=== PATIENT | female | born 1995 | race Caucasian/White ===

== ENCOUNTER 2016-08-30 01:01 | Emergency (ER) | payer MEDICAID ==
[~2016-08-30] VITALS: Ht 157.5 cm; Wt 80.0 kg
[~2016-08-30 01:01] MED LIST: ALPR-475 PO; DEXA0.5T PO; DEXA1TAB5 PO; FAMO-79 PO; FAMO20TA7 PO; LEVE100020 PO; LEVE500T53 PO; LORA-446 PO; MELA1TAB8 PO; OXYC5TAB2 PO; OXYC5TAB3 PO; PANT40TA3 PO; PHEN100C PO; SUMA25TA3 PO
[2016-08-30 01:59] VITALS: BP 135/74
== END 2016-08-30 02:43 | disposition home or self-care (01) ==
LOC: ED 02:08
DX: M25.461 Effusion, right knee (principal); M25.462 Effusion, left knee
CPT/HCPCS: 99284

== ENCOUNTER → 2016-09-19 | Outpatient (CLI) | payer MEDICAID | END | disposition home or self-care (01) | LOC: ROC 15:27 | PROVIDERS: ATTEND Radiology Radiation Oncology | DX: C71.1 Malignant neoplasm of frontal lobe (principal) | CPT/HCPCS: 99212; G0463 ==

== ENCOUNTER → 2016-10-14 | Outpatient (CLI) | payer MEDICAID ==
[~2016-10-14] MED LIST changes: +GADOBUTROL 10 MMOL/10 ML PFS ONE
== END | disposition home or self-care (01) ==
LOC: CFH 10:16
PROVIDERS: ATTEND Radiology Radiation Oncology
DX: C71.1 Malignant neoplasm of frontal lobe (principal); D05.12 Intraductal carcinoma in situ of left breast; Z92.3 Personal history of irradiation
CPT/HCPCS: 70553; A9585

== ENCOUNTER 2017-01-15 20:39 | Emergency (ER) | payer MEDICAID ==
[~2017-01-15] VITALS: Ht 157.5 cm; Wt 82.2 kg
[~2017-01-15 20:39] MED LIST changes: -GADOBUTROL 10 MMOL/10 ML PFS ONE
[2017-01-15 21:12] VITALS: BP 147/87
[2017-01-15 21:54] LABS: HEMOGLOBIN 13.9 g/dL (11.7-16.4); WHITE BLOOD COUNT 8.1 x10^3/uL (3.4-10)
[2017-01-15] MEDS ORDERED: IBUPROFEN 200 MG TABLET PO ONE (22:00)
[2017-01-15] MEDS ORDERED: IBUPROFEN 200 MG TABLET ONE (22:04)
[2017-01-15 22:05] LABS: BLOOD UREA NITROGEN 17 mg/dL (7-18)
== END 2017-01-15 22:40 | disposition left against medical advice (07) ==
LOC: ED 22:22
DX: R51 Headache (principal); C71.9 Malignant neoplasm of brain, unspecified; M79.1 Myalgia; G40.909 Epilepsy, unspecified, not intractable, without status epilepticus
CPT/HCPCS: 36415; 70450; 80048; 85025; 99285

== ENCOUNTER 2017-03-14 10:28 | Emergency (ER) | payer MEDICAID ==
[~2017-03-14] VITALS: Ht 157.5 cm; Wt 78.6 kg
[2017-03-14 10:41] VITALS: BP 131/85
== END 2017-03-14 13:46 | disposition left against medical advice (07) ==
LOC: ED 13:40
DX: R52 Pain, unspecified (principal); Z53.21 Procedure and treatment not carried out due to patient leaving prior to being seen by health care provider
CPT/HCPCS: 93005

== ENCOUNTER 2017-03-15 08:25 | Outpatient (CLI) | payer MEDICAID | END 2017-03-15 14:57 | LOC: ROC 08:25 | PROVIDERS: ATTEND Radiology Radiation Oncology | DX: Z02.9 Encounter for administrative examinations, unspecified (principal) ==

== ENCOUNTER 2017-03-15 09:41 | Emergency (ER) | payer MEDICAID ==
[~2017-03-15] VITALS: Ht 157.5 cm; Wt 77.3 kg
[2017-03-15] MEDS ORDERED: SODIUM CHLORIDE 0.9% 1,000ML IVBOLUS ONE (10:30)
[2017-03-15] MEDS ORDERED: SODIUM CHLORIDE FLUSH 10ML SYR IVF ONE (10:30)
[2017-03-15 10:38] LABS: HEMATOCRIT 45.3 % (34.6-47.8); HEMOGLOBIN 15.3 g/dL (11.7-16.4); WHITE BLOOD COUNT 13.4 x10^3/uL (3.4-10)
[2017-03-15 10:49] LABS: BLOOD UREA NITROGEN 12 mg/dL (7-18)
[2017-03-15 11:09] LABS: RAPID INFLUENZA A Negative (Negative); RAPID INFLUENZA B Negative (Negative)
[2017-03-15] MEDS ORDERED: KETOROLAC 30 MG/1 ML ONE (11:24)
[2017-03-15] MEDS ORDERED: KETOROLAC 30 MG/1 ML IVPush ONE (11:30)
[2017-03-15 12:09] VITALS: BP 120/66
== END 2017-03-15 12:11 | disposition home or self-care (01) ==
LOC: ED 10:34
DX: B34.9 Viral infection, unspecified (principal); G43.909 Migraine, unspecified, not intractable, without status migrainosus; G40.909 Epilepsy, unspecified, not intractable, without status epilepticus
CPT/HCPCS: 36415; 71020; 80048; 82040; 85025; 87400; 96361; 96374; 99285; J1885; J7030

== ENCOUNTER 2018-01-23 06:14 | Emergency (ER) | payer OTHER, MEDICAID ==
[~2018-01-23] VITALS: Ht 154.9 cm; Wt 64.0 kg
[2018-01-23] MEDS ORDERED: SUMA25TA3 PO (06:26)
[2018-01-23] MEDS ORDERED: GABA300C PO (06:26)
[2018-01-23] MEDS ORDERED: ANXIETY MED (06:26)
[2018-01-23 06:58] LABS: BASOPHILS # (AUTO) 0.03 x10^3/uL (0-0.1); BASOPHILS % (AUTO) 0 % (0-1); EOSINOPHILS # (AUTO) 0.05 x10^3/uL (0-0.4); EOSINOPHILS % (AUTO) 1 % (1-7); LYMPHOCYTES # (AUTO) 1.68 x10^3/uL (1-3.4); LYMPHOCYTES % (AUTO) 17 % (22-44); MD NO; MEAN CORPUSCULAR HGB CONC 34.2 g/dL (32.4-35.8); MEAN CORPUSCULAR VOLUME 90.6 fL (80-100); MEAN PLATELET VOLUME 7.4 fL (7.4-10.4); MONOCYTES # (AUTO) 0.99 x10^3/uL (0.2-0.8); MONOCYTES % (AUTO) 10 % (2-9); NEUTROPHILS # (AUTO) 7.09 x10^3/uL (1.8-6.8); NEUTROPHILS % (AUTO) 72 % (42-75); PLATELET COUNT 372 x10^3/uL (130-400); RED BLOOD COUNT 4.52 x10^6/uL (3.82-5.3); RED CELL DISTRIBUTION WIDTH 13.4 % (9.6-15.2)
[2018-01-23 07:08] LABS: ANION GAP 12 mmol/L (5-15); CHLORIDE 104 mmol/L (98-107); CREATININE 0.66 mg/dL (0.55-1.02)
[2018-01-23 07:09] LABS: ALBUMIN 3.7 g/dL (3.4-5.0)
[2018-01-23 08:56] LABS: MICROSCOPIC NOT IND
[2018-01-23 09:00] LABS: CULTURE INDICATED? NO
[2018-01-23] MEDS ORDERED: ACETAMINOPHEN 500 MG TABLET ONE (09:29)
[2018-01-23] MEDS ORDERED: DICYCLOMINE 10 MG/ML, 2ML ONE (09:29)
[2018-01-23] MEDS ORDERED: DICYCLOMINE 10 MG/ML, 2ML IM ONE (09:30)
[2018-01-23] MEDS ORDERED: ACETAMINOPHEN 500 MG TABLET PO ONE (09:30)
[2018-01-23 09:46] VITALS: BP 117/78
== END 2018-01-23 10:09 | disposition home or self-care (01) ==
LOC: ED 07:13
DX: O26.891 Other specified pregnancy related conditions, first trimester (principal); R10.84 Generalized abdominal pain; E87.6 Hypokalemia; R39.15 Urgency of urination; R39.198 Other difficulties with micturition; G43.909 Migraine, unspecified, not intractable, without status migrainosus; F17.200 Nicotine dependence, unspecified, uncomplicated; Z85.3 Personal history of malignant neoplasm of breast; Z3A.01 Less than 8 weeks gestation of pregnancy
CPT/HCPCS: 36415; 76801; 80048; 81003; 82040; 84702; 85025; 96372; 99285; J0500

== ENCOUNTER 2018-11-01 19:47 | Emergency (ER) | payer MEDICAID ==
[~2018-11-01] VITALS: Ht 157.5 cm; Wt 63.8 kg
[~2018-11-01 19:47] MED LIST changes: +ANXIETY MED; +GABA300C PO
--- NOTE | 2018-11-01 20:30 | NUR ---
FIRST CONTACT WITH PT. PT HERE WITH HISTORY BREAST CA AND ASTROCYTOMA STATING THAT SHE HAS BEEN HAVING HEADACHES AND BODY ACHES FOR 2 MONTHS, ALSO NOTES PT SEEING FLASHES OF LIGHT FOR THE PAST TWO WEEKS. HAS BEEN OFF ALL HER MEDS FOR 9 MONTHS RELATED TO AND HAS NOT SEEN ANYONE MEDICAL IN TWO YEARS DUE TO BAD RELATIONSHIP PERSONAL LIFE. PT'S AOX4. RESPS EVEN AND UNLABORED. BP/SPO2 MONITORS IN PLACE. CALL LIGHT WITHIN REACH. EDMD AT BEDSIDE TO EVALUATE AT THIS TIME.
[2018-11-01 20:31] VITALS: BP 121/69
--- NOTE | 2018-11-01 20:41 | NUR ---
PT AMB TO BR AND BACK TO ROOM WITH STEADY GAIT. UA SENT.
--- NOTE | 2018-11-01 20:51 | NUR ---
CT PENDING BETA RESULT.
[2018-11-01 20:52] LABS: BASOPHILS # (AUTO) 0.02 x10^3/uL (0-0.1); BASOPHILS % (AUTO) 0 % (0-1); EOSINOPHILS # (AUTO) 0.11 x10^3/uL (0-0.4); EOSINOPHILS % (AUTO) 1 % (1-7); LYMPHOCYTES # (AUTO) 1.29 x10^3/uL (1-3.4); LYMPHOCYTES % (AUTO) 14 % (22-44); MD NO; MEAN CORPUSCULAR HEMOGLOBIN 29.7 pg (27.0-34.8); MEAN CORPUSCULAR VOLUME 90.1 fL (80-100); MEAN PLATELET VOLUME 7.8 fL (7.4-10.4); MONOCYTES # (AUTO) 0.87 x10^3/uL (0.2-0.8); MONOCYTES % (AUTO) 9 % (2-9); NEUTROPHILS # (AUTO) 7.07 x10^3/uL (1.8-6.8); NEUTROPHILS % (AUTO) 76 % (42-75); PLATELET COUNT 319 x10^3/uL (130-400); RED CELL DISTRIBUTION WIDTH 13.3 % (9.6-15.2)
[2018-11-01 20:57] LABS: MICROSCOPIC AUTO
[2018-11-01 21:01] LABS: CULTURE INDICATED? YES
[2018-11-01 21:02] LABS: AMPHETAMINE SCREEN, URINE Positive (Negative); BARBITURATE SCREEN, URINE Negative (Negative); BENZODIAZEPINE SCREEN, URINE Negative (Negative); CANNABINOID SCREEN, URINE Positive (Negative); COCAINE SCREEN, URINE Negative (Negative); METHADONE SCREEN, URINE Negative (Negative); OPIATE SCREEN, URINE Negative (Negative)
[2018-11-01 21:04] LABS: ALBUMIN 3.9 g/dL (3.4-5.0); ANION GAP 7 mmol/L (5-15); CALCIUM 9.4 mg/dL (8.5-10.1); CHLORIDE 108 mmol/L (98-107); SALICYLATE LEVEL 1.8 mg/dL (2.8-20.0)
[2018-11-01 21:09] LABS: % IRON SATURATION 20 % (20-55); ALANINE AMINOTRANSFERASE 22 U/L (12-78); ALKALINE PHOSPHATASE 71 U/L (45-117); BILIRUBIN,TOTAL 1.1 mg/dL (0.2-1.0); CREATININE 0.98 mg/dL (0.55-1.02); IRON LEVEL 58 mcg/dL (50-170); TOTAL IRON BINDING CAPACITY 283 mcg/dL (250-450); TOTAL PROTEIN 7.4 g/dL (6.4-8.2); TRANSFERRIN 216 mg/dL (200-360)
--- NOTE | 2018-11-01 21:22 | NUR ---
PT IN CT NOW.
[2018-11-01] MEDS ORDERED: IBUPROFEN 800 MG TABLET ONE (21:29)
[2018-11-01] MEDS ORDERED: CEFTRIAXONE 1,000 MG ONE (21:29)
[2018-11-01] MEDS ORDERED: CEFTRIAXONE 1,000 MG IM ONE (21:30)
[2018-11-01] MEDS ORDERED: IBUPROFEN 800 MG TABLET PO ONE (21:30)
--- NOTE | 2018-11-01 21:38 | NUR ---
PT MEDICATED PER EMAR. PT TOLERATED WELL.
--- NOTE | 2018-11-01 22:07 | NUR ---
PT GIVEN DC INSTRUCTIONS AND SCRIPTS. PT EDUCATED REGARDING DC MEDICATIONS. PT'S AOX4. RESPS EVEN AND UNLABORED. PT AMB TO DC WITH STEADY GAIT. NO ACUTE DISTRESS AT DC.
== END 2018-11-01 22:08 | disposition home or self-care (01) ==
LOC: ED 21:33
DX: D49.6 Neoplasm of unspecified behavior of brain (principal); N39.0 Urinary tract infection, site not specified; F11.10 Opioid abuse, uncomplicated; F15.10 Other stimulant abuse, uncomplicated; F17.200 Nicotine dependence, unspecified, uncomplicated; G40.909 Epilepsy, unspecified, not intractable, without status epilepticus; Z85.3 Personal history of malignant neoplasm of breast
CPT/HCPCS: 36415; 70450; 80053; 80307; 81001; 82728; 83540; 83550; 84466; 84703; 85025; 87077; 87086; 87186; 93005; 96372; 99284; J0696

== ENCOUNTER 2019-10-22 20:08 | Emergency (ER) | payer MEDICAID ==
[~2019-10-22] VITALS: Ht 157.5 cm; Wt 73.3 kg
[~2019-10-22 20:08] MED LIST changes: -ALPR-475 PO; +ALPR0.5T7 PO
[2019-10-22] MEDS ORDERED: SODIUM CHLORIDE 0.9% 1,000ML IVBOLUS ONE (20:30)
[2019-10-22] MEDS ORDERED: ACETAMINOPHEN 500 MG TABLET PO ONE (20:30)
[2019-10-22] MEDS ORDERED: SODIUM CHLORIDE FLUSH 10ML SYR IVF ONE (20:30)
--- NOTE | 2019-10-22 20:39 | NUR ---
FIRST PT CONTACT: PT RESTING IN GURNEY, APPEARS UNCOMFORTABLE, PT MOVING SLOWLY WHEN ASKING TO ADJUST POSITIONS. PT REPORTS COMING IN TODAY DUE TO A POSSIBLE NEEDLE IN FOOT. PT LAYING IN GURNEY, NAD, DENIES ANY NEW NUMBNESS OR TINGLING, CMS INTACT. SKIN IS WARM AND DRY, FRIEND AT BS. WCTM. PLACED ON BP/SPO2/ECG AT THIS TIME. ECG SHOWS SINUS TACH. MICHAEL DUBOSE AT BS FOR EVAL AND POC.
[2019-10-22 20:52] LABS: MEAN CORPUSCULAR HEMOGLOBIN 29.6 pg (27.0-34.8); MEAN CORPUSCULAR HGB CONC 33.8 g/dL (32.4-35.8); MEAN CORPUSCULAR VOLUME 87.7 fL (80-100); MEAN PLATELET VOLUME 7.7 fL (7.4-10.4); PLATELET COUNT 273 x10^3/uL (130-400); RED BLOOD COUNT 4.18 x10^6/uL (3.82-5.3); RED CELL DISTRIBUTION WIDTH 13.1 % (9.6-15.2)
[2019-10-22 21:02] LABS: ANION GAP 5 mmol/L (5-15); CALCIUM 8.7 mg/dL (8.5-10.1); CHLORIDE 104 mmol/L (98-107); CREATININE 0.86 mg/dL (0.55-1.02)
[2019-10-22 21:25] LABS: BASOPHILS # (AUTO) 0.01 x10^3/uL (0-0.1); BASOPHILS % (AUTO) 0 % (0-1); EOSINOPHILS % (AUTO) 0 % (1-7); LYMPHOCYTES # (AUTO) 0.58 x10^3/uL (1-3.4); LYMPHOCYTES % (AUTO) 5 % (22-44); MD SCAN; MONOCYTES # (AUTO) 1.06 x10^3/uL (0.2-0.8); MONOCYTES % (AUTO) 8 % (2-9); NEUTROPHILS # (AUTO) 11.27 x10^3/uL (1.8-6.8); NEUTROPHILS % (AUTO) 87 % (42-75)
--- NOTE | 2019-10-22 21:26 | NUR ---
JEREMY LITTLE AT DISCUSSING POC AND EVAL. PT UA AND CULTURES SENT, PT MEDICATED PER JUN. RAINA, [place]. WAITING TO REMOVE NEEDLE FROM FOOT.
[2019-10-22] MEDS ORDERED: LIDOCAINE-MPF 1%, 5ML ONE ×3 (21:28→23:17)
[2019-10-22] MEDS ORDERED: DIPH,PERTUSS(ACELL),TET VAC/PF 0.5 ML IM-VACC ONE ×2 (21:28→21:30)
[2019-10-22] MEDS ORDERED: ACETAMINOPHEN 500 MG TABLET ONE (21:28)
[2019-10-22] MEDS ORDERED: LIDOCAINE-MPF 1%, 5ML INFIL ONE (21:30)
[2019-10-22 22:02] LABS: MICROSCOPIC INDICATED
[2019-10-22] MEDS ORDERED: CEFTRIAXONE PMX 1GM/50ML 50 ML ONE (22:22)
--- NOTE | 2019-10-22 22:26 | NUR ---
PT RESTING IN JEREMY BROOKS ATTEMPTING TO REMOVE FOREIGN BODY FROM FOOT. PT CONDITION IS UNCHANGED. WCTM.
[2019-10-22] MEDS ORDERED: CEFTRIAXONE PMX 1GM/50ML 50 ML IVPB ONE (22:30)
--- NOTE | 2019-10-22 23:22 | NUR ---
PT MOVED TO TRAUMA 1 TO USE C ARM TO VISUALIZE FOREIGN BODY FOR REMOVAL. PT CONDITION UNCHANGED. VSS. ANDRÉSTM.
--- NOTE | 2019-10-22 23:40 | NUR ---
FOREIGN BODY UNABLE TO BE REMOVED AT THIS TIME. PA TO CONSULT FRO FUTURE REMOVAL. PT CONDITION UNCHANGED, WCTM.
[2019-10-23] MEDS ORDERED: NEOSPORIN OINT. PKT 1 PACKET ONE (00:33)
--- NOTE | 2019-10-23 00:41 | NUR ---
PT RESTING IN GURNEY, GETTING BANDAGED BY TECH AND SET UP WITH CRUTCHES. PT NAD. WENT OVER DC INSTRUCTIONS IN EXPLICIT DETAIL. PT STATED SHE UNDERSTOOD, ALL QUESTIONS ANSWERED APPROPRIATELY. PT INFORMED THAT IT IS IMPERATIVE TO FOLLOW UP WITH ORTHO AND TAKE ALL ABX. PT RECOMMENDED TO USE OTC MEDICATIONS FOR ANY FEVER, ICE FOR SWELLING. PT INFORMED OF TAKING PROBIOTICS WITH ABX AND FINISHING ALL ABX. ADDITIONAL EDUCATION AND PACKETS REVIEWED. PT LEFT WITH ALL BELONGINGS. DENIES ADDITIONAL QUESTIONS AT THIS TIME.
[2019-10-23 00:45] VITALS: BP 94/54
== END 2019-10-23 01:09 | disposition home or self-care (01) ==
LOC: ED 10-23 00:02
DX: S91.341A Puncture wound with foreign body, right foot, initial encounter (principal); Z20.828 Contact with and (suspected) exposure to other viral communicable diseases; L02.611 Cutaneous abscess of right foot; M79.5 Residual foreign body in soft tissue; N30.00 Acute cystitis without hematuria; M54.2 Cervicalgia; H53.149 Visual discomfort, unspecified; G43.909 Migraine, unspecified, not intractable, without status migrainosus; F17.200 Nicotine dependence, unspecified, uncomplicated; W27.3XXA Contact with needle (sewing), initial encounter; Y93.89 Activity, other specified; Y92.89 Other specified places as the place of occurrence of the external cause; Y99.8 Other external cause status
CPT/HCPCS: 10120; 36415; 71045; 73630; 76000; 80048; 81001; 83605; 84145; 84703; 85025; 87040; 87077; 87086; 87186; 90471; 90715; 96365; 99285; J0696; J7030; U0001

== ENCOUNTER 2020-01-20 12:19 | Emergency (ER) | payer MEDICAID ==
[~2020-01-20] VITALS: Ht 157.5 cm; Wt 69.6 kg
--- NOTE | 2020-01-20 12:59 | NUR ---
C/O BODY ACHES X5 DAYS, PLACED VITALS MONITORS. CALL LIGHT PLACED WITHIN REACH.
[2020-01-20 13:43] LABS: BASOPHILS # (AUTO) 0.02 x10^3/uL (0-0.1); BASOPHILS % (AUTO) 0 % (0-1); EOSINOPHILS # (AUTO) 0.04 x10^3/uL (0-0.4); EOSINOPHILS % (AUTO) 1 % (1-7); LYMPHOCYTES # (AUTO) 1.18 x10^3/uL (1-3.4); LYMPHOCYTES % (AUTO) 18 % (22-44); MD NO; MEAN CORPUSCULAR HEMOGLOBIN 28.5 pg (27.0-34.8); MEAN CORPUSCULAR HGB CONC 32.9 g/dL (32.4-35.8); MEAN CORPUSCULAR VOLUME 86.7 fL (80-100); MONOCYTES % (AUTO) 6 % (2-9); NEUTROPHILS % (AUTO) 75 % (42-75); PLATELET COUNT 325 x10^3/uL (130-400); RED BLOOD COUNT 4.91 x10^6/uL (3.82-5.3); RED CELL DISTRIBUTION WIDTH 13.4 % (9.6-15.2)
[2020-01-20 13:46] LABS: ALBUMIN 3.5 g/dL (3.4-5.0); CALCIUM 8.8 mg/dL (8.5-10.1); CHLORIDE 112 mmol/L (98-107)
--- NOTE | 2020-01-20 13:47 | NUR ---
URINE SAMPLE COLLECTED.
[2020-01-20 13:50] LABS: ALANINE AMINOTRANSFERASE 21 U/L (12-78); ANION GAP 5 mmol/L (5-15); BILIRUBIN,TOTAL 0.5 mg/dL (0.2-1.0); CREATININE 0.75 mg/dL (0.55-1.02); TOTAL PROTEIN 7.2 g/dL (6.4-8.2)
[2020-01-20 13:54] LABS: RAPID INFLUENZA A Negative (Negative); RAPID INFLUENZA B Negative (Negative)
[2020-01-20 13:54] LABS: ALKALINE PHOSPHATASE 68 U/L (45-117)
--- NOTE | 2020-01-20 13:58 | NUR ---
REPORT GIVEN TO KAREEM SINGER.
--- NOTE | 2020-01-20 14:15 | NUR ---
.FIRST CONTACT, PT SLEEPING WAKES UP W VERBAL, VSS. STATES HAS ALL OVER BODY PAIN. TEMP WNL. AIDET PROVIDED.
[2020-01-20 14:17] LABS: MICROSCOPIC NOT IND
[2020-01-20 14:19] LABS: AMPHETAMINE SCREEN, URINE Negative (Negative); BARBITURATE SCREEN, URINE Negative (Negative); BENZODIAZEPINE SCREEN, URINE Negative (Negative); CANNABINOID SCREEN, URINE Positive (Negative); COCAINE SCREEN, URINE Negative (Negative); METHADONE SCREEN, URINE Negative (Negative); OPIATE SCREEN, URINE Positive (Negative)
[2020-01-20] MEDS ORDERED: IBUPROFEN 600 MG TABLET ONE (14:56)
[2020-01-20] MEDS ORDERED: IBUPROFEN 600 MG TABLET PO ONE (15:00)
--- NOTE | 2020-01-20 15:01 | NUR ---
PT WAS UP AT NURSING STATION, REPORTS WANTING TO LEAVE. PT INFORMED MEDICATION TO BE GIVEN.
[2020-01-20 16:03] VITALS: BP 114/66
== END 2020-01-20 16:08 | disposition home or self-care (01) ==
LOC: ED 14:48
DX: M79.10 Myalgia, unspecified site (principal); F11.10 Opioid abuse, uncomplicated; Z20.828 Contact with and (suspected) exposure to other viral communicable diseases; G40.909 Epilepsy, unspecified, not intractable, without status epilepticus; F17.200 Nicotine dependence, unspecified, uncomplicated; Z85.3 Personal history of malignant neoplasm of breast
CPT/HCPCS: 36415; 80053; 80307; 81003; 82550; 84703; 85025; 87400; 87635; 99283